=== PATIENT | female | born 1960 | race African-American/Black ===

== ENCOUNTER 2017-10-04 16:27 | Emergency (ER) | payer BC, MEDICARE ==
[~2017-10-04] VITALS: Ht 160 cm; Wt 70.0 kg
[~2017-10-04 16:27] MED LIST: AMOXICILLIN/CL875 MG PO; AMOXICILLIN500 MG PO; ANTIVERT25 MG OR; AUGMENTIN875TAB PO; AVELOX400 MG OR; BENADRYL 50MG C50 MG OR; BP PILL; CHLORTHALID25 MG PO; CHOLESTEROL PILL; CIPRO500 MG OR; CIPROFLOXACIN H0.3 % OP; CIPROFLOXACN500 MG PO; CLARITHROMYC500 MG PO; DOXYCYCL HYC100 MG PO; EPIPEN0.3 MG IJ; EPIPEN0.3 MG IM; FLONASE SPRAY50 MCG; FLUOXETINE20 MG PO; FLUTICASONE50 MCG; KETOCONAZOLE2 % EX; LEVAQUIN750 MG PO; LIPITOR10 MG OR; LISINOP/HCTZ1 TA1 PO; LISINOPRIL20 MG PO; LOPRESSOR25 MG PO; LOPRESSOR50 M1 PO; LORTAB 5 OR; LOTREL1 CA1 OR; MECLIZINE12.5 MG OR; MECLIZINE25 MG OR; MEDDOSEPAK OR; MEDDOSEPAK PO; METOPROL TAR25 MG PO; METRONIDAZOL250 MG PO; METRONIDAZOLE500 MG PO; NAPROSYN500 MG PO; NIFEDICAL XL30 MG PO; NO HOME MEDS; NORCO1 TA1 PO; NORVASC10 M1 OR; NORVASC10 M1 PO; NORVASC10 MG OR; PATANOL0.1 % OU; PEPCID40 MG OR; POT CHLORIDE20 ME3 OR; PREDNISONE10 MG PO; PREDNISONE20 MG OR; PRILOSEC20 MG PO; PROMETHAZINE25 M1 RE; RANITIDINE150 M1 PO; SIMVASTATIN20 MG OR; SINGULAIR OR; SINGULAIR10 MG OR; SUDAFE1 OR; TETRACYCLINE H500 MG PO; TRIAMCINOLON0.025 % EX; ULTRAM50 M1 OR; ULTRAM50 M1 PO; VENTOLIN HFA IN; ZANTAC150 M1 PO; ZESTORETIC 20/11 TAB OR; ZESTRIL5 MG OR; ZOCOR20 M1 PO; ZOCOR20 MG PO; [UNRECOGNIZED DRUG - OTHER] PO
[2017-10-04] MEDS ORDERED: EPIPEN 2-P0.3 MG/0.3 SC (17:27)
[2017-10-04] MEDS ORDERED: DELTASONE20 MG PO (17:27)
[2017-10-04 17:37] VITALS: BP 186/82
== END 2017-10-04 17:44 | disposition home or self-care (01) | DRG 916 ==
LOC: ED 16:27
DX: T78.40XA Allergy, unspecified, initial encounter (principal); F17.210 Nicotine dependence, cigarettes, uncomplicated; I10 Essential (primary) hypertension

== ENCOUNTER 2017-12-06 07:24 | Emergency (ER) | payer BC, MEDICARE ==
[~2017-12-06] VITALS: Ht 160 cm; Wt 85.0 kg
[~2017-12-06 07:24] MED LIST changes: +DELTASONE20 MG PO; +EPIPEN 2-P0.3 MG/0.3 SC
[2017-12-06] MEDS ORDERED: AMLODIPINE5 MG PO (07:35)
[2017-12-06] MEDS ORDERED: CLEOCIN300 MG PO (07:52)
[2017-12-06 07:54] VITALS: BP 142/83
== END 2017-12-06 08:00 | disposition home or self-care (01) | DRG 603 ==
LOC: ED 07:24
DX: L03.113 Cellulitis of right upper limb (principal); I10 Essential (primary) hypertension

== ENCOUNTER 2018-07-28 11:02 | Emergency (ER) | payer MEDICARE, BC ==
[~2018-07-28] VITALS: Ht 160 cm; Wt 100.0 kg
[~2018-07-28 11:02] MED LIST changes: +AMLODIPINE5 MG PO; +CLEOCIN300 MG PO
[2018-07-28] MEDS ORDERED: BACTROBAN21 EX (11:33)
[2018-07-28 11:46] VITALS: BP 138/61
== END 2018-07-28 11:46 | disposition home or self-care (01) ==
LOC: ED 11:02
DX: S10.96XA Insect bite of unspecified part of neck, initial encounter (principal); I10 Essential (primary) hypertension; W57.XXXA Bitten or stung by nonvenomous insect and other nonvenomous arthropods, initial encounter

== ENCOUNTER 2018-09-17 11:35 | Emergency (ER) | payer BC, MEDICARE ==
[~2018-09-17] VITALS: Ht 160 cm; Wt 88.6 kg
[~2018-09-17 11:35] MED LIST changes: +BACTROBAN21 EX
[2018-09-17] MEDS ORDERED: ALBUTEROL SUL0.083 % IN (11:55)
[2018-09-17] MEDS ORDERED: PEPCID20 MG PO (13:44)
[2018-09-17] MEDS ORDERED: PREDNISONE20 MG PO (13:44)
[2018-09-17 13:53] VITALS: BP 146/66
== END 2018-09-17 13:53 | disposition home or self-care (01) | DRG 916 ==
LOC: ED 11:35
DX: T78.40XA Allergy, unspecified, initial encounter (principal); L50.0 Allergic urticaria; R22.0 Localized swelling, mass and lump, head

== ENCOUNTER 2018-12-04 09:58 | Emergency (ER) | payer BC, MEDICARE ==
[~2018-12-04] VITALS: Ht 160 cm; Wt 85.6 kg
[~2018-12-04 09:58] MED LIST changes: +ALBUTEROL SUL0.083 % IN; +PEPCID20 MG PO; +PREDNISONE20 MG PO
[2018-12-04] MEDS ORDERED: ESOMEPRAZOLE MA40 MG PO (10:15)
[2018-12-04] MEDS ORDERED: AMLODIPINE BESY10 MG PO (10:15)
[2018-12-04] MEDS ORDERED: LOPRESSOR 550 MG/TAB PO (10:16)
[2018-12-04] MEDS ORDERED: SIMVASTATIN20 MG PO (10:16)
[2018-12-04] MEDS ORDERED: CEPHALEXIN500 M1 PO (10:20)
[2018-12-04] MEDS ORDERED: MUPIROCIN2 % EX (10:21)
[2018-12-04 10:25] VITALS: BP 159/89
== END 2018-12-04 10:25 | disposition home or self-care (01) | DRG 603 ==
LOC: ED 09:58
DX: L01.00 Impetigo, unspecified (principal); I10 Essential (primary) hypertension

== ENCOUNTER 2019-02-22 08:10 | Emergency (ER) | payer BC, MEDICARE ==
[~2019-02-22] VITALS: Ht 160 cm; Wt 83.8 kg
[~2019-02-22 08:10] MED LIST changes: +AMLODIPINE BESY10 MG PO; +CEPHALEXIN500 M1 PO; +ESOMEPRAZOLE MA40 MG PO; +LOPRESSOR 550 MG/TAB PO; +MUPIROCIN2 % EX; +SIMVASTATIN20 MG PO
[2019-02-22 10:24] VITALS: BP 159/73
== END 2019-02-22 10:24 | disposition home or self-care (01) | DRG 605 ==
LOC: ED 08:10
DX: S90.31XA Contusion of right foot, initial encounter (principal); I10 Essential (primary) hypertension; W20.8XXA Other cause of strike by thrown, projected or falling object, initial encounter; Y93.E9 Activity, other interior property and clothing maintenance; Y92.009 Unspecified place in unspecified non-institutional (private) residence as the place of occurrence of the external cause

== ENCOUNTER 2019-06-08 | Emergency (ER) | payer BC, MEDICARE ==
[2019-06-08] MEDS ORDERED: MEDDOSEPAK PO (09:04)
[2019-06-08] MEDS ORDERED: EPIPEN 2-P0.3 MG/0.3 IM (09:04)
== END 2019-06-08 09:41 | disposition home or self-care (01) | DRG 916 ==
DX: T78.40XA Allergy, unspecified, initial encounter (principal); I10 Essential (primary) hypertension; X58.XXXA Exposure to other specified factors, initial encounter

== ENCOUNTER 2019-06-29 22:48 | Observation (INO) | payer BC, MEDICARE ==
[~2019-06-29] VITALS: Ht 160 cm; Wt 82.2 kg
[~2019-06-29 22:48] MED LIST changes: +EPIPEN 2-P0.3 MG/0.3 IM
--- NOTE | 2019-06-29 22:50 | NUR ---
PATIENT IMMEDIATELY TO TREATMENT AREA, IV ESTABLISHED. PATIENT HAS LARGE TONGUE, SWELLING TO EYELIDS, RASH/ITCHING TO ARMS. PATIENT STATES SHE TOOK 2 DOSES OF EPI SHORT STORY WRITER BUT STATES SHE DIDN'T FEEL IT GO IN. ALSO TOOK 2 TAB BENADRYL AND A METHYLPREDNISONE. PATIENT IS ANXIOUS, ABLE TO SPEAK BUT DROOLS. PLACED ON MONITOR. TRIAGE COMPLETED AT BEDSIDE.
--- NOTE | 2019-06-29 23:22 | NUR ---
DR HAS BEEN IN ROOM X 2. PT CALMING. RESP EASY. BREATHING EASIER.
--- NOTE | 2019-06-29 23:43 | NUR ---
PT MUCH BETTER. VSS. AT BEDSIDE. PT DOESN'T WANT TO BE ADMITTED. WILL KEEP FOR A WHILE TO OBSERVE.
[2019-06-30] VITALS (16 sets, daily range): BP systolic 118–164; BP diastolic 51–82
--- NOTE | 2019-06-30 00:15 | NUR ---
PT UP TO BR.
--- NOTE | 2019-06-30 00:25 | NUR ---
DR AT BEDSIDE. DECIDED TO ADMIT PT. LABS ORDERED. LAB AT BEDSIDE TO DRAW. PT FEELS BETTER BUT TONGUE IS STILL EXTREMELY SWOLLEN.
--- NOTE | 2019-06-30 00:43 | NUR ---
RACEMIC NEB IN PROGRESS. VSS.
[2019-06-30 00:47] LABS: HEMATOCRIT 40.2 % (37.0-47.0); HEMOGLOBIN 13.8 g/dl (12.0-16.0); IMMATURE GRANULOCYTES 0.6 % (0.0-5.0); MEAN CELL VOLUME 76.3 fL CALC (80.0-100.0); MEAN CORPUSCULAR HGB 26.2 pG CALC (26.0-32.0); MEAN CORPUSCULAR HGB CONC 34.3 g/L CALC (32.0-36.0); NEUT# 16.66 thou/uL (2.00-7.15); RED BLOOD COUNT 5.27 mill/uL (4.20-5.60); RED CELL DISTRI WIDTH 15.9 % (11.5-15.5)
--- NOTE | 2019-06-30 00:51 | NUR ---
SBAR SENT TO ICU
[2019-06-30 01:06] LABS: ALBUMIN 4.3 g/dL (3.2-5.0); ALKALINE PHOSPHATASE 135 u/l (38-126); ANION GAP 15 (6-22 (CALC)); BILIRUBIN, TOTAL 0.3 mg/dL (0.0-1.4); BUN 16 mg/dL (7-17); BUN/CREATININE RATIO 24 (12-20 (CALC)); CARBON DIOXIDE 24 mmol/l (22-30); CHLORIDE 105 mmol/l (95-108); CREATININE 0.7 mg/dL (0.5-1.0); GFR > 60 ML/MIN (>=60 (CALC)); GFR FOR AFR.AMER. > 60 ML/MIN (>=60 (CALC)); SGOT/AST 26 u/l (14-36); SODIUM 141 mmol/l (137-146); TOTAL PROTEIN 7.4 g/dL (6.3-8.2)
--- NOTE | 2019-06-30 01:15 | NUR ---
ROOM NOT READY.
--- NOTE | 2019-06-30 01:15 | NUR ---
PT UP TO BR. FEELS BETTER...TONGUE NOTICEABLY LESS SWOLLEN. REPORT TO ICU.
--- NOTE | 2019-06-30 01:35 | NUR ---
shyla rn in er notified of potassium level on impending admission. dr armas returned call. orders rec'd.
--- NOTE | 2019-06-30 01:58 | NUR ---
TO FLOOR VIA STRETCHER WITH PORTABLE PRIVATE BRANCH EXCHANGE SERVICE ADVISER.
--- NOTE | 2019-06-30 02:02 | NUR ---
52 yr old black female admitted icu3 per stretcher from er. transferred self to bed. bed weight obtained. spoke to pt @ length regarding anaphylactic reactions to peanuts. pt verbalized understanding. compliance monitor shows sinus tach hr 104. history obtained per pt & er record. oriented to room. fall precautions initiated.
--- NOTE | 2019-06-30 04:00 | NUR ---
eyes closed. no distress. no increasededema to face. payroll secretary shows sinus rhythm hr 90
[2019-06-30 05:58] LABS: URINE BILIRUBIN - DIPSTICK NEGATIVE (NEGATIVE); URINE BLOOD DIPSTICK NEGATIVE (NEGATIVE); URINE CLARITY CLEAR; URINE COLOR YELLOW; URINE GLUCOSE - DIPSTICK NEGATIVE (NEGATIVE); URINE KETONE NEGATIVE (NEGATIVE); URINE LEUK ESTERASE NEGATIVE (Negative); URINE NITRITE - DIPSTICK NEGATIVE (Negative); URINE PH 6.5 (4.5-8.0); URINE PROTEIN - DIPSTICK NEGATIVE (NEG-TRACE); URINE SPECIFIC GRAVITY <=1.005; URINE UROBILINOGEN - DIPSTICK 0.2 E.U./dL (0.2)
--- NOTE | 2019-06-30 07:00 | NUR ---
PT RESTING IN BED WITH EYES CLOSED. PT IS ALERT AND ORIENTED X3. RESP ARE EVEN AND UNLABORED. NOTED VOICE TO BE HOARSE. LEFT SIDE OF FACE IS SWOLLEN. TONGUE ON LEFT SIDE IS SWOLLEN. NECK IS SWOLLEN ON LEFT SIDE. BENADRYL GIVEN PER MAR. IV PATENT X1. CALL LIGHT IN REACH. WILL CONTINUE TO MONITOR.
--- NOTE | 2019-06-30 07:40 | NUR ---
PT SET UP FOR AM MEAL AT THIS TIME
--- NOTE | 2019-06-30 07:59 | NUR ---
DR WADE AT BEDSIDE AT THIS TIME.
[2019-06-30] MEDS ORDERED: EPIPEN 2-P0.3 MG/0.3 IM (08:08)
[2019-06-30] MEDS ORDERED: BENADRYL 50MG C50 MG PO (08:11)
--- NOTE | 2019-06-30 09:30 | NUR ---
TO NURSES STATION SAYING THAT PATIENT IS SWELLING AGAIN. THIS DRILLER'S ASSISTANT INTO ROOM PATIENT IN BATHROOM. PT ASSISTED BACK TO BED. HR 160S. RAPID RESPONSE CALLED IMMEADIATELY. DR WADE AT BEDSIDE. RT AT BEDSIDE. EKG COMPLETED SHOWS SVT. ER NURSE Jadiel PEDRAZA AND DR CHILDRESS AT BEDSIDE. EPI 0.3MG GIVEN BY Jadiel PEDRAZA RN AT 0940. PT PLACED ON O2 3L NC. O2 SATS 100%.
--- NOTE | 2019-06-30 09:50 | NUR ---
FROM WAITING ROOM TO BEDSIDE. PLAN OF CARE EXPLAINED
[2019-06-30 09:56] LABS: BARBITURATES NEGATIVE (NEGATIVE); COCAINE NEGATIVE (NEGATIVE); METHADONE NEGATIVE (NEGATIVE); OXCYCODONE NEGATIVE (NEGATIVE); TETRAHYDROCANNABIONOL NEGATIVE (NEGATIVE); TRICYLIC ANTIDEPRESSANTS NEGATIVE (NEGATIVE)
--- NOTE | 2019-06-30 10:00 | NUR ---
PT RESTING IN BED SPOUSE IN ROOM. RESP ARE EVEN AND UNLABORED. REMAINS ST ON MONITOR 110-120. CALL LIGHT IN REACH. WILL CONTINUE TO MONITOR.
--- NOTE | 2019-06-30 10:15 | NUR ---
PT RESTING IN BED TALKING ON PHONE AT THIS TIME. SWELLING SEEMS TO BE SUBSIDING SOME. PT STATES THAT SHE DOES FEEL SOMEWHAT BETTER AT THIS TIME. CALL LIGHT IN REACH. WILL CONTINUE TO MONITOR.
--- NOTE | 2019-06-30 11:22 | NUR ---
PT AMBULATING IN ROOM TO BATHROOM AND SELF BACK TO BED.
--- NOTE | 2019-06-30 11:32 | NUR ---
PT SET UP FOR NOON MEAL
--- NOTE | 2019-06-30 12:19 | NUR ---
PT RESTING IN BED WATCHING TV. RESP ARE EVEN AND UNLABORED. NO DISTRESS NOTED. CALL LIGHT IN REACH. WILL CONTINUE TO MONITOR.
--- NOTE | 2019-06-30 14:00 | NUR ---
PT RESTING IN BED AWAKE. RESP ARE EVEN AND UNLABORED. NO DISTRESS NOTED. CALL LIGHT IN REACH. WILL CONTINUE TO MONITOR.
--- NOTE | 2019-06-30 15:00 | NUR ---
PT STATES THAT SHE WAS ON A MEDROL DOSE MARGARITA PRIOR TO COMING TO THE HOSPITAL. PT QUESTIONS IF THIS COULD BE THE SOURCE OF THE ALLERGIC REACTION DUE TO RECEIVING STERIODS THIS AM. DR WADE NOTIFIED. NEW ORDERS RECEIVED.
--- NOTE | 2019-06-30 16:15 | NUR ---
PT STATES THAT SHE IS SCARED TO ANY STEROIDS AT THIS TIME. PT REFUSES DECADRON IV.
--- NOTE | 2019-06-30 17:15 | NUR ---
DISCUSSED WITH DR YUEN PT WAS REFUSING DECADRON. NEW ORDERS RECEIVED TO HOLD STEROIDS THROUGH NIGHT AND GIVEN PRN BENADRYL
--- NOTE | 2019-06-30 17:45 | NUR ---
PT SET UP FOR PM MEAL
--- NOTE | 2019-06-30 19:25 | NUR ---
MEDICATED W/ MOM PER REQUEST FOR C/O CONSTIPATION (SEE MAR). PRUNE JUICE PROVIDED. FRESH WATER PROVIDED. PT DENIES FURTHER NEEDS @ THIS TIME. CALL QUEEN WITHIN REACH, AGREES TO CALL PRN.
--- NOTE | 2019-06-30 20:05 | NUR ---
ASSESMENT COMPLETE. VS EDD, VSS-98.4F, 85bpm, 16RR, 141/73mmHg, 97% ON RA. SINUS RYTHM 80S ON TELEMETRY. PLAN OF CARE REVIEWED. PT VERBALIZES UNDERSTANDING,DENIES QUESTIONS AT THIS TIME. PT DENIES PAIN OR DISCOMFORT. PT DENIES FURTHER NEEDS @ THIS TIME. CALL QUEEN WITHIN REACH, AGREES TO CALL PRN.BED LOCKED IN LOW POSITION W/TOP BEDRAILS UPX2. PT'S ITEMS WITHIN REACH.
--- NOTE | 2019-06-30 21:57 | NUR ---
LAYING IN BED SEMI-FOWLERS USING HER TABLET. DENIES NEEDS AT THIS TIME. CALL QUEEN WITHIN REACH, AGREES TO CALL PRN. SAFETY/FALL RISK INTERVENTIONS REMAIN IN PLACE.
[2019-07-01 00:25] VITALS: BP 147/64
--- NOTE | 2019-07-01 00:25 | NUR ---
PT APPEARS TO BE SLEEPING COMFORTABLY. NO APPARENT DISTRESS. RESP REG &UNLABORED. PT WAKES EASILY. NO CHANGE FROM INITIAL ASSESMENT. DENIES NEEDS @THIS TIME. CALL QUEEN WITHIN REACH, AGREES TO CALL PRN. SAFETY/FALL INTERVENTIONS REMAIN IN PLACE. REMAINS SR INTHE 90'S ON TELEMETRY. VS REMAIN STABLE 63bpm, RR16, 147/64mmHg, 98% ON RA.
[2019-07-01 02:20] VITALS: BP 113/44
--- NOTE | 2019-07-01 02:20 | NUR ---
PT APPEARS TO BE SLEEPING COMFORTABLY. NO APPARENT DISTRESS. RESP REG &UNLABORED. NO CHANGE FROM INITIAL ASSESMENT. CALL QUEEN WITHIN REACH, AGREES TO CALL PRN. SAFETY/FALL INTERVENTIONS REMAIN IN PLACE. REMAINS SR INTHE 60'S ON TELEMETRY. VS REMAIN STABLE 61bpm, RR14, 113/44mmHg, 98% ON RA.
--- NOTE | 2019-07-01 05:38 | NUR ---
PT UP AND OOB, LINENS CHANGED. PT BATHED HERSLEF AND BATHROOM AND PUT ON CLEAN GOWN AND HOUSE COAT. PT SITTING UP IN CHAIR. STATES SHES FEELING "MUCH BETTER TODAY". STILL HAS NOT HAS BOWEL MOVEMENT. CUP OF COFFEE W/ CREAMER PROVIDED PER HER REQUEST. MONITOR LEFT OFF TEMPORARILY PER HER REQUEST. CALL QUEEN WITHIN REACH, AGREES TO CALL PRN. SAFETY/FALL INTERVENTIONS REMAIN IN PLACE.
[2019-07-01 05:50] LABS: HEMOGLOBIN 13.8 g/dl (12.0-16.0); MEAN CELL VOLUME 75.9 fL CALC (80.0-100.0); MEAN CORPUSCULAR HGB 26.2 pG CALC (26.0-32.0); MEAN CORPUSCULAR HGB CONC 34.5 g/L CALC (32.0-36.0); RED BLOOD COUNT 5.27 mill/uL (4.20-5.60); RED CELL DISTRI WIDTH 16.2 % (11.5-15.5)
[2019-07-01 06:18] LABS: ANION GAP 15 (6-22 (CALC)); BUN 19 mg/dL (7-17); BUN/CREATININE RATIO 28 (12-20 (CALC)); CARBON DIOXIDE 24 mmol/l (22-30); CHLORIDE 104 mmol/l (95-108); CREATININE 0.7 mg/dL (0.5-1.0); GFR > 60 ML/MIN (>=60 (CALC)); GFR FOR AFR.AMER. > 60 ML/MIN (>=60 (CALC)); SODIUM 138 mmol/l (137-146)
--- NOTE | 2019-07-01 07:15 | NUR ---
PT SITTING UP IN BED AWAKE. PT IS ALERT AND ORIENTED X3. SHIFT ASSESSMENT COMPLETED AT THIS TIME. IV PATENT X1. CALL LIGHT IN REACH. WILL CONTINUE TO MONITOR.
--- NOTE | 2019-07-01 07:53 | NUR ---
PT SITTING UP IN BED, EATING BREAKFAST. 2 VISITORS @BEDSIDE.
--- NOTE | 2019-07-01 09:20 | NUR ---
IV site discontinued, cath intact. No edema , no redness, voices no discomfort.
[2019-07-01 09:23] VITALS: BP 113/44
--- NOTE | 2019-07-01 10:10 | NUR ---
DISCHARGE INSTRUCTIONS REVIEWED WITH PATIENT AND SPOUSE. BOTH VERBALIZED UNDERSTANDING.
--- NOTE | 2019-07-01 10:11 | NUR ---
Discharge instructions given. Patient verbalizes understanding of same. Discharged in stable condition via Wheelchair to Home with family. All belongings sent with pt.
== END 2019-07-01 10:12 | disposition home or self-care (01) | DRG 916 ==
LOC: ED 22:48 → ED-I 23:34 → ED 23:34 → ED-I 06-30 00:14 → ED 06-30 00:34 → ICU 06-30 00:35
PROVIDERS: Emergency Medicine; Internal Medicine; ADMIT Internal Medicine; ATTEND Internal Medicine
DX: T78.3XXA Angioneurotic edema, initial encounter (principal); I10 Essential (primary) hypertension; J44.9 Chronic obstructive pulmonary disease, unspecified; K21.9 Gastro-esophageal reflux disease without esophagitis; Z87.891 Personal history of nicotine dependence

== ENCOUNTER 2021-11-30 14:53 | Emergency (ER) | payer BC, MEDICARE ==
[~2021-11-30] VITALS: Ht 160 cm; Wt 82.7 kg
[~2021-11-30 14:53] MED LIST changes: +BENADRYL 50MG C50 MG PO
[2021-11-30 15:10] VITALS: BP 160/62
[2021-11-30 15:16] VITALS: BP 148/74
[2021-11-30 15:30] VITALS: BP 165/83
[2021-11-30] MEDS ORDERED: VOLTAREN1%GEL TOP (17:01)
[2021-11-30] MEDS ORDERED: FLEXERIL5 M1 PO (17:01)
[2021-11-30 17:22] VITALS: BP 165/83
== END 2021-11-30 17:15 | disposition home or self-care (01) | DRG 556 ==
LOC: ED 14:53
DX: M79.622 Pain in left upper arm (principal); I10 Essential (primary) hypertension; K21.9 Gastro-esophageal reflux disease without esophagitis; E78.00 Pure hypercholesterolemia, unspecified

== ENCOUNTER 2022-03-10 04:22 | Emergency (ER) | payer BC, MEDICARE ==
[~2022-03-10] VITALS: Ht 162.6 cm; Wt 84.0 kg
[~2022-03-10 04:22] MED LIST changes: +FLEXERIL5 M1 PO; +VOLTAREN1%GEL TOP
[2022-03-10] MEDS ORDERED: CLARITIN10 M2 PO (06:03)
[2022-03-10] MEDS ORDERED: FLOXIN OTIC0.3 % AD (06:03)
[2022-03-10] MEDS ORDERED: AMOXICILLIN875 MG PO (06:03)
[2022-03-10 06:11] VITALS: BP 145/56
== END 2022-03-10 06:22 | disposition home or self-care (01) | DRG 153 ==
LOC: ED 04:22
DX: J02.0 Streptococcal pharyngitis (principal); H66.91 Otitis media, unspecified, right ear; I10 Essential (primary) hypertension; K21.9 Gastro-esophageal reflux disease without esophagitis; E78.00 Pure hypercholesterolemia, unspecified; Z20.822 Contact with and (suspected) exposure to COVID-19

== ENCOUNTER → 2022-04-24 | Emergency (ER) | payer BC, MEDICARE ==
[2022-04-24] VITALS (7 sets, daily range): BP systolic 133–150; BP diastolic 65–113
[~2022-04-24] VITALS: Ht 162.6 cm; Wt 90.0 kg
[~2022-04-24] MED LIST changes: +AMOXICILLIN875 MG PO; +CLARITIN10 M2 PO; +FLOXIN OTIC0.3 % AD
== END | disposition home or self-care (01) | DRG 556 ==
LOC: ED 06:58
DX: M79.641 Pain in right hand (principal); J02.9 Acute pharyngitis, unspecified

== ENCOUNTER 2023-01-31 11:57 | Emergency (ER) | payer BC, MEDICARE ==
[2023-01-31] VITALS (17 sets, daily range): BP systolic 125–151; BP diastolic 63–78
[~2023-01-31] VITALS: Ht 162.6 cm; Wt 82.0 kg
[2023-01-31] MEDS ORDERED: PREDNISONE50 MG PO (13:25)
[2023-01-31] MEDS ORDERED: EPIPEN 2-P0.3 MG/0.3 IM (13:25)
== END 2023-01-31 16:48 | disposition home or self-care (01) | DRG 916 ==
LOC: ED 11:57
DX: T78.40XA Allergy, unspecified, initial encounter (principal); I10 Essential (primary) hypertension; E11.9 Type 2 diabetes mellitus without complications; K21.9 Gastro-esophageal reflux disease without esophagitis; E78.00 Pure hypercholesterolemia, unspecified; X58.XXXA Exposure to other specified factors, initial encounter

== ENCOUNTER 2023-12-08 08:22 | Emergency (ER) | payer BC, MEDICARE ==
[~2023-12-08] VITALS: Ht 160 cm; Wt 81.6 kg
[~2023-12-08 08:22] MED LIST changes: +AMOX/K CLAV875 M1 PO; +MOTRIN800 MG PO; +PREDNISONE50 MG PO
[2023-12-08 08:27] VITALS: BP 163/82
[2023-12-08 08:30] VITALS: BP 158/82
[2023-12-08 08:45] VITALS: BP 178/98
[2023-12-08] MEDS ORDERED: KETOROLAC TROMETHAMINE 30 MG/ML SDV IM ONE (08:50)
[2023-12-08 09:00] VITALS: BP 141/91
[2023-12-08 09:16] VITALS: BP 151/75
[2023-12-08] MEDS ORDERED: NAPROXEN500 MG PO (09:33)
[2023-12-08 09:36] VITALS: BP 151/75
== END 2023-12-08 09:41 | disposition home or self-care (01) | DRG 556 ==
LOC: ED 08:22
DX: M25.552 Pain in left hip (principal); I10 Essential (primary) hypertension; E78.00 Pure hypercholesterolemia, unspecified; K21.9 Gastro-esophageal reflux disease without esophagitis

== ENCOUNTER 2024-05-19 12:12 | Emergency (ER) | payer BC, MEDICARE ==
[~2024-05-19] VITALS: Ht 160 cm; Wt 68.0 kg
[~2024-05-19 12:12] MED LIST changes: +NAPROXEN500 MG PO
[2024-05-19] MEDS ORDERED: DiphenhydrAMINE HCL 50 MG/ML SDV IV ONE (12:25)
[2024-05-19] MEDS ORDERED: methylPREDNISolone SODIUM SUCC 125 MG/2 ML SDV IV ONE (12:25)
[2024-05-19] MEDS ORDERED: FAMOTIDINE 10MG/ML 2ML SDV IV ONE (12:25)
[2024-05-19] MEDS ORDERED: EPINEPHrine HCL 1 MG/ML AMP IM ONE (12:25)
[2024-05-19 12:28] VITALS: BP 135/73
[2024-05-19 12:45] LABS: BASO% 0.5 % (0-3); HEMATOCRIT 40.6 % (37.0-47.0); HEMOGLOBIN 14.2 g/dl (12.0-16.0); IMMATURE GRANULOCYTES 0.2 % (0.0-5.0); LYMPH% 34.2 % (15-41); MEAN CELL VOLUME 77.9 fL CALC (80.0-100.0); MEAN CORPUSCULAR HGB 27.3 pG CALC (26.0-32.0); MONO% 5.8 % (2-13); NEUT# 6.06 thou/uL (2.00-7.15); NEUT% 57.3 % (42-76); RED BLOOD COUNT 5.21 mill/uL (4.20-5.60); RED CELL DISTRI WIDTH 15.1 % (11.5-15.5)
[2024-05-19 12:55] VITALS: BP 152/68
[2024-05-19 12:55] LABS: ALBUMIN 4.6 g/dL (3.2-5.0); BILIRUBIN, TOTAL 0.5 mg/dL (0.02-1.3); POTASSIUM 3.2 mmol/l (3.5-5.1); TOTAL PROTEIN 8.2 g/dL (6.3-8.2)
[2024-05-19 13:25] VITALS: BP 130/67
[2024-05-19 14:47] VITALS: BP 130/67
== END 2024-05-19 14:54 | disposition home or self-care (01) | DRG 916 ==
LOC: ED 12:12
PROVIDERS: Family Medicine
DX: T78.3XXA Angioneurotic edema, initial encounter (principal); I10 Essential (primary) hypertension; K21.9 Gastro-esophageal reflux disease without esophagitis; E78.00 Pure hypercholesterolemia, unspecified
CPT/HCPCS: J1200